=== PATIENT | male | born 1940 | race Caucasian/White ===

== ENCOUNTER 2024-01-20 13:57 | Inpatient (IN) | payer BC ==
[2024-01-20] MEDS ORDERED: ACETAMINOPHEN INJECTION 100 ML IVPB ONE (14:51)
[2024-01-20] MEDS: ACETAMINOPHEN 1000 MG/100 ML BAG IVPB ONE (15:06)
[2024-01-20 15:11] LABS: HEMATOCRIT 41.3 % (35.4-49); HEMOGLOBIN 13.9 GM/dL (11.7-16.9); MCH 29.7 pg (25.7-33.7); MCHC 33.7 g/dl (32.0-35.9); MEAN CELL VOLUME 88.1 fl (80-96); MEAN PLT VOLUME 7.1 fl (7.5-11.1); PLATELET COUNT 417 10^3/uL (134-434); RBC 4.68 M/mm3 (4.00-5.60); RDW 13.2 % (11.9-15.9)
[2024-01-20] MEDS ORDERED: PIPERACILLIN/TAZOB 4.5 GM 4.5 GM/100 ML BAG IVPB ONE (15:20)
[2024-01-20] MEDS: SODIUM CHLORIDE 0.9% 500 ML INFUS.BAG IV ONE (15:30)
[2024-01-20] MEDS: PIPERACILLIN/TAZOB 4.5 GM 4.5 GM in DEXTROSE 5%-WATER 100 ML IVPB ONE (15:30)
[2024-01-20 15:35] LABS: ANISOCYTOSIS 0; MACROCYTOSIS 0
[2024-01-20 15:36] LABS: URINE APPEARANCE TURBID; URINE COLOR DK YELLOW; URINE GLUCOSE (UA) NEGATIVE (NEGATIVE)
[2024-01-20 15:37] LABS: URINE BILIRUBIN MODERATE (NEGATIVE); URINE KETONE TRACE (NEGATIVE); URINE LEUK ESTERASE 3+ (NEGATIVE); URINE NITRITE NEGATIVE (NEGATIVE); URINE PROTEIN 1+ (NEGATIVE)
[2024-01-20 15:39] LABS: CHLORIDE 97 mmol/L (98-107); SODIUM 133 mmol/L (136-145)
[2024-01-20 15:41] LABS: BLOOD UREA NITROGEN 49.8 mg/dL (7-18); CALCIUM 9.6 mg/dL (8.5-10.1); CO2 30 mmol/L (21-32)
[2024-01-20 15:42] LABS: ALBUMIN 3.3 g/dl (3.4-5.0); GLUCOSE,RANDOM 119 mg/dL (74-106)
[2024-01-20 15:44] LABS: ANION GAP 6 mmol/L (4-13); CHOLESTEROL 194 mg/dL (50-200); CREATININE 1.2 mg/dL (0.55-1.3); POTASSIUM 7.2 mmol/L (3.5-5.1); SGOT/AST 75 U/L (15-37); SGPT/ALT 37 U/L (13-61)
[2024-01-20 15:45] LABS: LDL CHOLESTEROL (ONLY SJRH) 104 mg/dL (5-100)
[2024-01-20 15:46] LABS: BILIRUBIN,TOTAL 1.4 mg/dL (0.2-1); HDL CHOLESTEROL 60 mg/dL (40-60); TOT PROT 7.9 g/dl (6.4-8.2)
[2024-01-20 15:47] LABS: ALK PHOS 97 U/L (45-117)
[2024-01-20 16:59] LABS: POTASSIUM 4.1 mmol/L (3.5-5.1); POTASSIUM 4.2 mmol/L (3.5-5.1)
[2024-01-20 17:01] LABS: BLOOD UREA NITROGEN 48.6 mg/dL (7-18); CALCIUM 9.1 mg/dL (8.5-10.1); CALCIUM 9.3 mg/dL (8.5-10.1)
[2024-01-20 17:02] LABS: ALBUMIN 3.3 g/dl (3.4-5.0); BLOOD UREA NITROGEN 48.4 mg/dL (7-18); MAGNESIUM 2.5 mg/dL (1.8-2.4)
[2024-01-20 17:05] LABS: CREATININE 1.1 mg/dL (0.55-1.3)
[2024-01-20 17:06] LABS: BILIRUBIN,TOTAL 1.2 mg/dL (0.2-1)
[2024-01-20 20:09] LABS: INR 1.12 (0.83-1.09); PROTHROMBIN TIME (PATIENT) 12.6 SEC (9.7-13.0)
[2024-01-20] MEDS: DEXTROSE 5%-0.45% SALINE 1,000 ML IV SCH (22:42)
[2024-01-20] MEDS ORDERED: LIDOCAINE HCL 2% JELLY 6 ML TP ONE (23:37)
[2024-01-21 00:57] VITALS: BMI 21.8
[2024-01-21] MEDS: PIPERACILLIN/TAZOB 4.5 GM 4.5 GM in DEXTROSE 5%-WATER 100 ML IVPB SCH ×2 (02:14→14:25)
[2024-01-21] MEDS ORDERED: ACETAMINOPHEN 1000 MG/100 ML BAG IVPB PRN ×2 (04:22→12:55)
[2024-01-21] MEDS: ENOXAPARIN NA (PORCINE) 40 MG/0.4 ML DISP.SYRIN SQ SCH (09:19)
[2024-01-21] MEDS ORDERED: ONDANSETRON 4 MG/2 ML VIAL IVPUSH PRN ×2 (10:14→12:55)
[2024-01-21 10:18] LABS: HEMATOCRIT 38.9 % (35.4-49); HEMOGLOBIN 12.8 GM/dL (11.7-16.9); MCH 29.6 pg (25.7-33.7); MEAN CELL VOLUME 89.7 fl (80-96); MEAN PLT VOLUME 7.3 fl (7.5-11.1); PLATELET COUNT 385 10^3/uL (134-434); RBC 4.33 M/mm3 (4.00-5.60); RDW 12.9 % (11.9-15.9); WHITE BLOOD COUNT 20.3 K/mm3 (4.0-10.0)
[2024-01-21 10:46] LABS: POTASSIUM 3.9 mmol/L (3.5-5.1)
[2024-01-21 10:50] LABS: ALBUMIN 3.2 g/dl (3.4-5.0); BLOOD UREA NITROGEN 45.9 mg/dL (7-18); CALCIUM 9.2 mg/dL (8.5-10.1)
[2024-01-21 10:55] LABS: BILIRUBIN,TOTAL 1.1 mg/dL (0.2-1)
[2024-01-21] MEDS: BUPIVACAINE HCL/PF 0.25% (2.5MG/ML) 10 ML VIAL IJ ONE (11:31)
[2024-01-21] MEDS ORDERED: ACETAMINOPHEN 325 MG TABLET (FP) PO PRN (12:55)
[2024-01-21] MEDS ORDERED: oxyCODONE HCL 5 MG TABLET PO PRN (13:04)
[2024-01-21] MEDS: ALBUMIN HUMAN 5% 500 ML IV SOLUTION IV ONE (13:19)
[2024-01-21] MEDS: LACTATED RINGERS SOLUTION 1,000 ML IV SCH ×2 (13:19→14:00)
[2024-01-21 13:27] LABS: PLATELET ESTIMATE ADEQUATE
[2024-01-21 15:15] VITALS: RESP 18
[2024-01-21] MEDS: PIPERACILLIN/TAZOB 3.375 GM 3.375 GM in DEXTROSE 5%-WATER - 50 ML IVPB SCH (21:47)
[2024-01-22] MEDS: ENOXAPARIN NA (PORCINE) 40 MG/0.4 ML DISP.SYRIN SQ SCH (09:20)
[2024-01-22 09:53] LABS: HEMOGLOBIN 11.2 GM/dL (11.7-16.9); MCHC 33.9 g/dl (32.0-35.9); MEAN CELL VOLUME 88.5 fl (80-96); MEAN PLT VOLUME 6.8 fl (7.5-11.1); PLATELET COUNT 288 10^3/uL (134-434); RBC 3.74 M/mm3 (4.00-5.60); WHITE BLOOD COUNT 14.4 K/mm3 (4.0-10.0)
[2024-01-22 10:12] LABS: POTASSIUM 3.7 mmol/L (3.5-5.1)
[2024-01-22 10:16] LABS: ALBUMIN 2.6 g/dl (3.4-5.0); BLOOD UREA NITROGEN 31.8 mg/dL (7-18)
[2024-01-22 10:17] LABS: CALCIUM 8.4 mg/dL (8.5-10.1)
[2024-01-22 10:18] LABS: CREATININE 0.7 mg/dL (0.55-1.3)
[2024-01-22 10:20] LABS: TOT PROT 5.7 g/dl (6.4-8.2)
[2024-01-23 09:28] LABS: EOS % 0.2 % (0-4.5); HEMATOCRIT 34.6 % (35.4-49); HEMOGLOBIN 11.7 GM/dL (11.7-16.9); LYMPH % 7.2 % (8-40); MCH 29.8 pg (25.7-33.7); MCHC 33.9 g/dl (32.0-35.9); MEAN PLT VOLUME 6.9 fl (7.5-11.1); MONO % 5.7 % (3.8-10.2); NEUT % 86.9 % (42.8-82.8); PLATELET COUNT 294 10^3/uL (134-434); RBC 3.94 M/mm3 (4.00-5.60); RDW 12.9 % (11.9-15.9); WHITE BLOOD COUNT 11.3 K/mm3 (4.0-10.0)
[2024-01-23 09:46] LABS: POTASSIUM 3.7 mmol/L (3.5-5.1)
[2024-01-23 10:05] LABS: ALBUMIN 2.6 g/dl (3.4-5.0); BLOOD UREA NITROGEN 24.4 mg/dL (7-18)
[2024-01-23 10:08] LABS: CREATININE 0.7 mg/dL (0.55-1.3)
[2024-01-23 10:10] LABS: BILIRUBIN,TOTAL 0.9 mg/dL (0.2-1); TOT PROT 5.7 g/dl (6.4-8.2)
[2024-01-23 15:44] VITALS: BP 115/60; PULSE 72; TEMP 97.9
== END 2024-01-23 18:39 | disposition home or self-care (01) | DRG 335 ==
LOC: JER 13:57 → JERBED 19:48 → J6S 01-21 00:33
PROVIDERS: ADMIT Internal Medicine; ATTEND Family Medicine
PROC: 0DNW4ZZ Release Peritoneum, Percutaneous Endoscopic Approach (ICD-10-PCS; 2024-01-21)
PROC: 0DNN4ZZ Release Sigmoid Colon, Percutaneous Endoscopic Approach (ICD-10-PCS; principal; 2024-01-21 09:30)
DX: K45.0 Other specified abdominal hernia with obstruction, without gangrene (principal); J18.9 Pneumonia, unspecified organism; N39.0 Urinary tract infection, site not specified; K52.89 Other specified noninfective gastroenteritis and colitis; K66.0 Peritoneal adhesions (postprocedural) (postinfection); E78.5 Hyperlipidemia, unspecified; B96.1 Klebsiella pneumoniae [K. pneumoniae] as the cause of diseases classified elsewhere; D72.829 Elevated white blood cell count, unspecified
CPT/HCPCS: 0241U-QW; 36415; 71045-TC-FY; 74177-TC; 80048; 80053; 80061; 81003; 81015; 83605; 83690; 83735; 84478; 84484; 85025; 85027; 85610; 86850; 86900; 86901; 87040; 87086; 87186; 93005; 93010; 94760; 99285-25; J0131; J1644; Q9967